=== PATIENT | female | born 1985 | race Two or more races ===

== ENCOUNTER 2016-12-18 13:45 | Emergency (ER) | payer OTHER ==
[2016-12-18 13:51] VITALS: TEMP 98; BMI 24.4
[2016-12-18] MEDS ORDERED: DIPHTH,PERTUSS(ACELL),TET 0.5 ML DISP.SYRIN IM ONE (14:05)
--- NOTE | 2016-12-18 14:38 | PDOC ---
History of Present Illness - General Chief Complaint: Weakness Stated Complaint: CUT IN THE L HAND Time Seen by Provider: 12/18/16 13:56 History Source: Patient Exam Limitations: No Limitations - History of Present Illness Initial Comments: 12/18/16 14:34 31-year-old female status post laceration to the left hand. Patient states was opening up a can when it cut her on her palm causing bleeding and a laceration. Patient states is not up-to-date on tetanus but denies any medical history. Patient in triage felt diaphoretic and had a low BP so was sent here versus fast track. Timing/Duration: 1-3 hours Severity: mild Associated Symptoms: reports: denies symptoms Past History - Travel Traveled outside of the country in the last 30 days: No Close contact w/someone who was outside of country & ill: No - Past Medical History Allergies/Adverse Reactions: Allergies Allergy/AdvReac Type Severity Reaction Status Date / Time No Known Allergies Allergy Verified 12/18/16 13:52 Anemia: Yes Asthma: Yes - Surgical History GI Surgery: Yes (gastric bypass) - Psycho/Social/Smoking Cessation Hx Suicidal Ideation: No Smoking History: Never smoked Information on smoking cessation initiated: No Hx Alcohol Use: No Drug/Substance Use Hx: No Patient Lives Alone: No Lives with/in: spouse/SO Review of Systems - Review of Systems Able to Perform ROS?: Yes Constitutional: Yes: Diaphoresis HEENTM: No: Symptoms Reported Integumentary: Yes: See HPI Neurological: No: Dizziness *Physical Exam - Vital Signs Last Vital Signs Temp Pulse Resp BP Pulse Ox 98 F 62 18 82/49 100 12/18/16 13:47 12/18/16 13:47 12/18/16 13:47 12/18/16 13:47 12/18/16 13:47 - Physical Exam General Appearance: Yes: Nourished, Appropriately Dressed. No: Apparent Distress HEENT: negative: Pale Conjunctivae Respiratory/Chest: positive: Lungs Clear, Normal Breath Sounds. negative: Respiratory Distress, Accessory Muscle Use Cardiovascular: positive: Regular Rhythm, Regular Rate. negative: Murmur Integumentary: positive: Other (Patient with 2 cm laceration to the palmar aspect of left hand. Surrounding skin intact) Procedures - Laceration/Wound Repair Left Hand Wound Length: to 2.5 cm Wound Explored: clean Wound's Depth, Shape: superficial, linear Irrigated w/ Saline: Yes Betadine Prep: Yes Anesthesia: 1% Lidocaine Amount of Anesthetic (ccs): 1 Wound Repaired With: Sutures Suture Size/Type: 5:0 Number of Sutures: 5 Sterile Dressing Applied: Yes ED Treatment Course - Medications Given in the ED: ED Medications Discontinued Medications Generic Name Dose Route Start Last Admin Trade Name Freq PRN Reason Stop Dose Admin Diphtheria/Tetanus/Acell Pertussis 0.5 ml 12/18/16 14:05 12/18/16 14:25 Boostrix - IM 12/18/16 14:06 0.5 ml .ONCE ONE Administration Medical Decision Making - Medical Decision Making 12/18/16 14:36 Patient laceration to left hand. Patient had 5 stitches sutures placed without difficulty. Patient also received tetanus. Patient discharged home to follow-up in 10 days for suture removal. *DC/Admit/Observation/Transfer Diagnosis at time of Disposition: Laceration of hand Qualifiers: Encounter type: initial encounter Foreign body presence: without foreign body Laterality: left Qualified Code(s): S61.412A - Laceration without foreign body of left hand, initial encounter - Discharge Dispostion Disposition: HOME Condition at time of disposition: Improved - Patient Instructions Printed Discharge Instructions: DI for Laceration Repair -- Simple Additional Instructions: Change dressing on Thursday and then daily thereafter applying bacitracin to the area. Rreturn here 10 days for suture removal. If area becomes red swollen or is draining fluid please return sooner if this may be a sign of infection.
[2016-12-18 14:58] VITALS: BP 108/60; PULSE 60
== END 2016-12-18 14:50 | disposition home or self-care (01) ==
LOC: JER 13:45
PROC: 0HQGXZZ Repair Left Hand Skin, External Approach (ICD-10-PCS; principal; 2016-12-18)
DX: S61.412A Laceration without foreign body of left hand, initial encounter (principal); W26.8XXA Contact with other sharp object(s), not elsewhere classified, initial encounter; Y93.89 Activity, other specified; Y92.9 Unspecified place or not applicable; Y99.9 Unspecified external cause status; Z98.84 Bariatric surgery status
CPT/HCPCS: 90715; 99282-25

== ENCOUNTER 2016-12-28 14:14 | Emergency (ER) | payer OTHER ==
[2016-12-28 14:17] VITALS: BP 109/69; PULSE 67; TEMP 98.2; BMI 24.4
--- NOTE | 2016-12-28 14:45 | PDOC ---
Suture Removal/Wound Check HPI - History of Present Illness Chief Complaint: Suture/Staple Removal(Here) Stated Complaint: REVISIT/ REMOVE STICHES Time Seen by Provider: 12/28/16 14:23 History Source: Yes: Patient Exam Limitations: Yes: No Limitations Treated at: [facility] Date of Last ED visit: 12/18/16 - Previous ED Treatment Type of procedure performed on last visit: Yes: Laceration Repair Tetanus Immunization: Yes: Up to Date Past History - Past Medical History Allergies/Adverse Reactions: Allergies No Known Allergies Allergy (Verified 12/28/16 14:17) General: Yes: no pertinent history Surgical History: Yes: No Surgical History - Social History Smoking Status: Never smoked Suture Removal/Wound Check PE - Physical Exam Comments: 12/28/16 14:39 Wound is moist with moist edges, 5 sutures removed. Dermabond placed over wound for stability. In high tension area and edges were moist. Current Severity Level: None Maximum Severity Level: None Pain Localization: None *Review of Systems - Review of Systems Constitutional: No: Symptoms Reported Integumentary: No: Symptoms Reported, Bruising, Erythema All Other Systems: Reviewed and Negative Medical Decision Making - Medical Decision Making 12/28/16 14:43 A/P : Suture removal , dermabond, chance of area opening if area gets wet or high tension, she verbalized understanding. *DC/Admit/Observation/Transfer Diagnosis at time of Disposition: Encounter for removal of sutures - Discharge Dispostion Disposition: HOME Condition at time of disposition: Good Admit: No - Patient Instructions Printed Discharge Instructions: DI for Suture Removal Additional Instructions: Please keep area dry for at least 3 days Please note if the area gets wet, or hypotension may open Follow-up as needed
== END 2016-12-28 15:11 | disposition home or self-care (01) ==
LOC: JERFT 14:14
DX: Z48.02 Encounter for removal of sutures (principal)
CPT/HCPCS: 99281-25

== ENCOUNTER 2017-04-13 09:34 | Emergency (ER) | payer OTHER ==
[2017-04-13 09:38] VITALS: BP 109/65; PULSE 65; TEMP 98.2; BMI 25.0
--- NOTE | 2017-04-13 11:09 | PDOC ---
History of Present Illness - General Chief Complaint: Back Pain Stated Complaint: LOWER BACK PAIN Time Seen by Provider: 04/13/17 11:07 Past History - Past Medical History Allergies/Adverse Reactions: Allergies Allergy/AdvReac Type Severity Reaction Status Date / Time No Known Allergies Allergy Verified 04/13/17 09:36 Home Medications: Ambulatory Orders Cyclobenzaprine HCl 5 mg PO HS #10 tablet 04/13/17 Naproxen Sodium 275 mg PO BID #14 tablet 04/13/17 Anemia: Yes Asthma: Yes Other medical history: back problems - Surgical History GI Surgery: Yes (gastric bypass) - Suicide/Smoking/Psychosocial Hx Smoking History: Never smoked Have you smoked in the past 12 months: No Information on smoking cessation initiated: No Hx Alcohol Use: No Drug/Substance Use Hx: No Substance Use Type: None *Physical Exam - Vital Signs Last Vital Signs Temp Pulse Resp BP Pulse Ox 98.2 F 65 18 109/65 100 04/13/17 09:37 04/13/17 09:37 04/13/17 09:37 04/13/17 09:37 04/13/17 09:37 *DC/Admit/Observation/Transfer Diagnosis at time of Disposition: Low back pain Qualifiers: Chronicity: acute Back pain laterality: right Sciatica presence: with sciatica Sciatica laterality: sciatica of right side Qualified Code(s): M54.41 - Lumbago with sciatica, right side - Discharge Dispostion Disposition: HOME Condition at time of disposition: Good Admit: No - Referrals Referrals: Mg Lozoya MD [Primary Care Provider] - - Patient Instructions Printed Discharge Instructions: DI for Low Back Pain Additional Instructions: You have low back pain. You were prescribed naproxen and flexaril. Take the flexaril before bed tonight and then again tomorrow morning when you wake up. do not drive after taking this mediation as it may make you sleepy. Start taking the naproxen tomorrow. Use a heating pad to help with your symptoms. Follow up with your doctor in one week. Return to the ED if you have worsening pain, develop fevers, chills, or have bladder or bowel incontinence or any changes in your symptoms.
[2017-04-13] MEDS ORDERED: KETOROLAC TROMETHAMINE 60 MG/2 ML VIAL ONE (11:37)
[2017-04-13] MEDS ORDERED: KETOROLAC TROMETHAMINE 60 MG/2 ML VIAL IM ONE (11:37)
[2017-04-13] MEDS ORDERED: CYCLOBENZAPRINE HCL 10 MG TABLET (FP) ONE (11:38)
[2017-04-13] MEDS ORDERED: CYCLOBENZAPRINE HCL 10 MG TABLET (FP) PO ONE (11:47)
[2017-04-14] MEDS ORDERED: CYCLOBENZAPRINE HCL 5 MG TABLET PO ONE (11:38)
== END 2017-04-13 11:52 | disposition home or self-care (01) ==
LOC: JERFT 09:34
PROC: 3E0233Z Introduction of Anti-inflammatory into Muscle, Percutaneous Approach (ICD-10-PCS; principal; 2017-04-13)
DX: M54.41 Lumbago with sciatica, right side (principal); J45.909 Unspecified asthma, uncomplicated
CPT/HCPCS: 96372; 99281-25

== ENCOUNTER 2017-09-14 14:04 | Emergency (ER) | payer OTHER ==
--- NOTE | 2017-09-14 15:19 | PDOC ---
Rapid Medical Evaluation Time Seen by Provider: 09/14/17 15:16 Medical Evaluation: Allergies Allergy/AdvReac Type Severity Reaction Status Date / Time No Known Allergies Allergy Verified 04/13/17 09:36 09/14/17 15:16 I have performed a brief in-person evaluation of this patient. The patient presents with a chief complaint of: fever since thursday, post nasal drip, headache, body hurts, throat pain w/ swallowing Pertinent physical exam findings: exudate b/l tonsils I have ordered the following: strep The patient will proceed to the ED for further evaluation. Discharge Disposition - Diagnosis Sore throat - Referrals - Patient Instructions - Post Discharge Activity
[2017-09-14 15:21] VITALS: BP 109/63; PULSE 87; TEMP 98.6; BMI 25.0
[2017-09-14] MEDS ORDERED: IBUPROFEN 600 MG TABLET (FP) PO ONE (16:00)
[2017-09-14] MEDS ORDERED: PENICILLIN G BENZATHINE 1,200,000 UNIT/2 ML PFS IM ONE (16:08)
--- NOTE | 2017-09-14 16:09 | PDOC ---
History of Present Illness - General Chief Complaint: Cold Symptoms Stated Complaint: BODYACHES, SORE THROAT Time Seen by Provider: 09/14/17 15:16 History Source: Patient Exam Limitations: No Limitations - History of Present Illness Initial Comments: 09/14/17 16:01 Onset of fever, chills, body aches with ear congestion, runny nose, and sore throat pain with moist nonproductive cough. All symptoms started 3-1/2 days ago. Has used [id number] medications with minimal resolved. Timing/Duration: reports: just prior to arrival Severity: reports: mild, moderate Associated Symptoms: reports: chest pain/soreness, cough, fever/chills, nasal congestion, sore throat Past History - Travel Traveled outside of the country in the last 30 days: No Close contact w/someone who was outside of country & ill: No - Past Medical History Allergies/Adverse Reactions: Allergies Allergy/AdvReac Type Severity Reaction Status Date / Time No Known Allergies Allergy Verified 04/13/17 09:36 Anemia: Yes Asthma: Yes COPD: No Other medical history: scoliosis/herniated discs - Surgical History GI Surgery: Yes (gastric bypass) - Suicide/Smoking/Psychosocial Hx Smoking History: Never smoked Have you smoked in the past 12 months: No Information on smoking cessation initiated: No Hx Alcohol Use: No Drug/Substance Use Hx: No Substance Use Type: None Review of Systems - Review of Systems Able to Perform ROS?: Yes Is the patient limited Romansh proficient: Yes Constitutional: Yes: Symptoms Reported, See HPI, Fever, Malaise HEENTM: Yes: Symptoms Reported, See HPI, Throat Pain, Difficulty Swallowing Respiratory: Yes: See HPI, Cough (nonproductive) Musculoskeletal: Yes: Symptoms Reported Integumentary: Yes: Symptoms Reported, See HPI, Pallor Neurological: Yes: Symptoms reported, See HPI, Headache All Other Systems: Reviewed and Negative *Physical Exam - Vital Signs Last Vital Signs Temp Pulse Resp BP Pulse Ox 98.6 F 87 109 H 109/63 97 09/14/17 15:18 09/14/17 15:18 09/14/17 15:18 09/14/17 15:18 09/14/17 15:18 - Physical Exam Comments: 09/14/17 16:02 GENERAL: [The child is awake, alert, and appropriately interactive.] EYES: [The pupils are equal, round, and reactive to light, with clear, conjunctiva.but glassy] NOSE: [The nose with clear drainage EARS: [The ear canals and tympanic membranes are congested but landmarks easily visualed ] THROAT: [The oropharynx is clear with erythema, with yellowish leyva exudate. The mucous membranes are moist.] NECK: [The neck is supple with mildly tender adenopathy, no menigemous] CHEST: [The lungs are coarse but clear without crackles, or wheezes.] HEART: [Heart is regular rhythm, with normal S1 and S2, no murmurs.] ABDOMEN: [The abdomen is soft and nontender with normal bowel sounds. There is no organomegaly and no mass. There is no guarding or rebound.] EXTREMITIES: [Extremities are normal.] NEURO: [Behavior is normal for age.cranky but easily,m Tone is normal.] SKIN: [Skin is unremarkable without rash or swelling. There is no bruising, and there are no other signs of injury.] General Appearance: Yes: Nourished, Appropriately Dressed, Apparent Distress, Mild Distress, Moderate Distress Progress Note - Progress Note Progress Note: Strep test positive, we'll treat with Bicillin 1.2 million units IM with observation for 30 minutes no reaction. Also probable influenza however outside window for Tamiflu treatment. We'll continue conservative measures for that resolution. *DC/Admit/Observation/Transfer Diagnosis at time of Disposition: Influenzal acute upper respiratory infection, Strep pharyngitis - Discharge Dispostion Disposition: HOME Condition at time of disposition: Stable Admit: No - Referrals - Patient Instructions Printed Discharge Instructions: DI for Strep Throat, DI for Viral Upper Respiratory Infection-Child Additional Instructions: Rest, drink lots of fluids: Teas, water, soups Eat cold things: Ice cream, ice pops, ice chips Saltwater gargles Old-fashioned treatments help! Avoid contact with others until fevers and cough resolved as this is very contagious Lots of handwashing and good hygiene Steamy showers/seem to face break up mucus Avoid contact with others until fevers and pain resolved Lots of handwashing and good hygiene, this is contagious You have been treated with Bicillin LA 1.2 million units injection which is a one-time treatment for strep pharyngitis. You will not need to take any further antibiotics. Tylenol or Motrin for fever and pain Followup with private physician in one to 2 days as needed or if worsening Return to emergency department for worsened symptoms, fevers, dehydration Influenza takes between 5 and 7 days for resolution To not participate in any activity, work, or school until fevers and cough are gone for at least one day - Post Discharge Activity Forms/Work/School Notes: Back to Work
== END 2017-09-14 16:38 | disposition home or self-care (01) ==
LOC: JERFT 14:04
DX: J02.0 Streptococcal pharyngitis (principal); B95.0 Streptococcus, group A, as the cause of diseases classified elsewhere; J11.1 Influenza due to unidentified influenza virus with other respiratory manifestations
CPT/HCPCS: 87070; 87430; 96372; 99281-25

== ENCOUNTER 2018-06-05 23:47 | Emergency (ER) | payer OTHER ==
--- NOTE | 2018-06-06 00:07 | PDOC ---
Attending Attestation - HPI HPI: 06/06/18 01:09 The patient is a 33 year old female, with a significant PMH of gastric bypass, who presents to the emergency department with 1 day of periumbilical pain, nausea with vomiting (non bloody, non bilious) and diarrhea (non bloody). The patient states her symptoms feel similar to her previous episodes of gastritis. The patient denies chest pain, shortness of breath, headache and dizziness. Denies fever, chills and constipation. Denies dysuria, frequency, urgency and hematuria. Allergies: NKA Documentation prepared by Bao Gutierrez, acting as medical intern for Theodora Luna MD - Physicial Exam PE: 06/06/18 01:10 GENERAL: Awake, alert, and fully oriented, in no acute distress HEAD: No signs of trauma EYES: PERRLA, EOMI, sclera anicteric, conjunctiva clear ENT: Auricles normal inspection, hearing grossly normal, nares patent, oropharynx clear without exudates. Moist mucosa NECK: Normal ROM, supple, no lymphadenopathy, JVD, or masses LUNGS: Breath sounds equal, clear to auscultation bilaterally. No wheezes, and no crackles HEART: Regular rate and rhythm, normal S1 and S2, no murmurs, rubs or gallops ABDOMEN: (+) Periumbilical tenderness. No rebound or guarding. (+) Kemp sign positive. Soft, normoactive bowel sounds. No masses. EXTREMITIES: Normal range of motion, no edema. No clubbing or cyanosis. No cords, erythema, or tenderness NEUROLOGICAL: Cranial nerves II through XII grossly intact. Normal speech, normal gait SKIN: Warm, Dry, normal turgor, no rashes or lesions noted. <Bao Gutierrez - Last Filed: 06/06/18 01:09> - Resident Resident Name: Issa Sawyer - ED Attending Attestation I have performed the following: I have examined & evaluated the patient, The case was reviewed & discussed with the resident, I agree w/resident's findings & plan - HPI HPI: 06/06/18 00:50 Pt comes with abd pain. - Physicial Exam PE: 06/06/18 00:51 Vitals are stable. - Medical Decision Making 06/06/18 01:55 Pt has epigastric pain on exam. SHe has no RUQ pain. She has no fever and no chills and she has no RUQ pain. Bediside sono shows no GB stones. Pt had diarrhea all day today and tonight she started vomiting. This is a stomach virus. She has no hx of food poisoning or eating anything suspicios. All labs are normal UA normal. 06/06/18 03:18 Pt feels great after hydration and treatment in the ER as well as after reassurance with normal labs and normal UA. <Theodora Luna - Last Filed: 06/06/18 03:18>
[2018-06-06 00:16] VITALS: BP 102/72; PULSE 72; TEMP 97.6; BMI 25.0
[2018-06-06] MEDS ORDERED: ACETAMINOPHEN 1000 MG/100 ML VIAL (NON FORMULARY) IVPB ONE (00:27)
[2018-06-06] MEDS ORDERED: SODIUM CHLORIDE 1,000 ML IV STA (00:27)
[2018-06-06] MEDS ORDERED: ACETAMINOPHEN INJECTION 100 ML IVPB ONE (00:46)
[2018-06-06 01:09] LABS: BASO % 0.7 % (0-2.0); EOS % 2.8 % (0-4.5); HEMATOCRIT 43.3 % (32.4-45.2); HEMOGLOBIN 14.8 GM/dL (10.7-15.3); LYMPH % 26.3 % (8-40); MCHC 34.1 g/dl (32.0-36.0); MEAN CELL VOLUME 82.1 fl (80-96); MEAN PLT VOLUME 10.2 fl (7.5-11.1); MONO % 7.7 % (3.8-10.2); NEUT % 62.5 % (42.8-82.8); PLATELET COUNT 164 K/MM3 (134-434); RBC 5.28 M/mm3 (3.60-5.2); RDW 24.6 % (11.6-15.6); WHITE BLOOD COUNT 6.3 K/mm3 (4.0-10.0)
[2018-06-06 01:16] LABS: URINE APPEARANCE CLEAR; URINE BILIRUBIN NEGATIVE (<2.0 mg/dL); URINE COLOR YELLOW; URINE GLUCOSE (UA) NEGATIVE (NEGATIVE); URINE KETONE NEGATIVE (NEGATIVE); URINE LEUK ESTERASE NEGATIVE (NEGATIVE); URINE NITRITE NEGATIVE (NEGATIVE); URINE PROTEIN NEGATIVE (NEGATIVE)
[2018-06-06] MEDS ORDERED: FAMOTIDINE 20 MG/50 ML IVPB 20 MG/50 ML MG IVPB ONE ×2 (01:22→01:39)
[2018-06-06] MEDS ORDERED: ONDANSETRON 4 MG/2 ML VIAL IVPUSH ONE (01:22)
[2018-06-06 01:23] LABS: HCG,QUALITATIVE URINE Negative
[2018-06-06 01:33] LABS: ALBUMIN 4.2 g/dl (3.4-5.0); ALK PHOS 122 U/L (45-117); ANION GAP 5 MMOL/L (8-16); BILIRUBIN,TOTAL 0.4 mg/dL (0.2-1); BLOOD UREA NITROGEN 12 mg/dL (7-18); CALCIUM 8.5 mg/dL (8.5-10.1); CHLORIDE 107 mmol/L (98-107); CO2 27 mmol/L (21-32); CREATININE 0.6 mg/dL (0.55-1.3); GLUCOSE,RANDOM 67 mg/dL (74-106); SGOT/AST 22 U/L (15-37); SGPT/ALT 43 U/L (13-61); SODIUM 139 mmol/L (136-145); TOT PROT 7.7 g/dl (6.4-8.2)
[2018-06-06] MEDS ORDERED: ONDANSETRON 4 MG/2 ML VIAL ONE (01:38)
--- NOTE | 2018-06-06 01:49 | PDOC ---
History of Present Illness - General Chief Complaint: Pain, Acute Stated Complaint: ABDOMINAL PAIN Time Seen by Provider: 06/06/18 00:00 History Source: Patient - History of Present Illness Initial Comments: 06/06/18 01:49 33YO F with PMH of Asthma, Anemia, H/O Gastric Bypass (8 yrs ago) and gastritis presents to the ED with epigastric/paraumbilical abdominal pain, feels like burning, since around 4pm today. Pain associated with nausea, vomiting and diarrhea. Decreased appetite. Denies fever, chills. No dysuria. 06/06/18 02:52 Past History - Past Medical History Allergies/Adverse Reactions: Allergies Allergy/AdvReac Type Severity Reaction Status Date / Time No Known Allergies Allergy Verified 06/06/18 00:14 Home Medications: Ambulatory Orders Famotidine [Pepcid -] 20 mg PO BID #60 tablet 06/06/18 Anemia: Yes Asthma: Yes COPD: No - Surgical History GI Surgery: Yes (gastric bypass) - Suicide/Smoking/Psychosocial Hx Smoking History: Never smoked Have you smoked in the past 12 months: No Information on smoking cessation initiated: No Hx Alcohol Use: No Drug/Substance Use Hx: No Substance Use Type: None Review of Systems - Review of Systems Able to Perform ROS?: Yes Is the patient limited Irish proficient: No Constitutional: No: Symptoms Reported HEENTM: No: Symptoms Reported Respiratory: No: Symptoms reported Cardiac (ROS): No: Symptoms Reported ABD/GI: Yes: See HPI : No: Symptoms Reported Musculoskeletal: No: Symptoms Reported Integumentary: No: Symptoms Reported Neurological: No: Symptoms reported All Other Systems: Reviewed and Negative *Physical Exam - Vital Signs Last Vital Signs Temp Pulse Resp BP Pulse Ox 97.6 F 72 20 102/72 100 06/06/18 00:15 06/06/18 00:15 06/06/18 00:15 06/06/18 00:15 06/06/18 00:15 - Physical Exam General Appearance: Yes: Nourished, Appropriately Dressed. No: Apparent Distress HEENT: positive: EOMI, BARBARA, Normal ENT Inspection Respiratory/Chest: positive: Lungs Clear, Normal Breath Sounds. negative: Chest Tender, Respiratory Distress Cardiovascular: positive: Regular Rhythm, Regular Rate, S1, S2 Gastrointestinal/Abdominal: positive: Normal Bowel Sounds, Tender (epigastric), Flat, Soft Musculoskeletal: positive: Normal Inspection. negative: CVA Tenderness Extremity: positive: Normal Capillary Refill, Normal Inspection, Normal Range of Motion Integumentary: positive: Normal Color, Dry, Warm Neurologic: positive: Fully Oriented, Alert, Normal Mood/Affect, Normal Response , Motor Strength 11/28 ED Treatment Course - LABORATORY CBC & Chemistry Diagram: 06/06/18 00:53 06/06/18 00:53 - ADDITIONAL ORDERS Additional order review: Laboratory Results 06/06/18 06/06/18 06/06/18 00:53 00:53 00:45 WBC 6.3 RBC 5.28 H Hgb 14.8 Hct 43.3 D MCV 82.1 MCH 28.0 D MCHC 34.1 RDW 24.6 H Plt Count 164 MPV 10.2 D Absolute Neuts (auto) 3.9 Neutrophils % 62.5 Lymphocytes % 26.3 Monocytes % 7.7 Eosinophils % 2.8 Basophils % 0.7 Nucleated RBC % 0 Sodium 139 Potassium 4.0 Chloride 107 Carbon Dioxide 27 Anion Gap 5 L BUN 12 Creatinine 0.6 Creat Clearance w eGFR > 60 Random Glucose 67 L Calcium 8.5 Total Bilirubin 0.4 AST 22 ALT 43 Alkaline Phosphatase 122 H Total Protein 7.7 Albumin 4.2 Urine Color Yellow Urine Appearance Clear Urine pH 5.0 Ur Specific [place] 1.021 Urine Protein Negative Urine Glucose (UA) Negative Urine Ketones Negative Urine Blood Negative Urine Nitrite Negative Urine Bilirubin Negative Urine Urobilinogen 2.0 H Ur Leukocyte Esterase Negative Urine HCG, Qual Negative 06/06/18 00:53 RBC 5.28 H MCV 82.1 MCHC 34.1 RDW 24.6 H MPV 10.2 D Neutrophils % 62.5 Lymphocytes % 26.3 Monocytes % 7.7 Eosinophils % 2.8 Basophils % 0.7 - Medications Given in the ED: ED Medications Discontinued Medications Generic Name Dose Route Start Last Admin Trade Name Freq PRN Reason Stop Dose Admin Acetaminophen 1,000 mg 06/06/18 00:27 06/06/18 00:37 Ofirmev Injection - IVPB 06/06/18 00:28 1,000 mg ONCE ONE Administration Sodium Chloride 1,000 mls @ 1,000 mls/hr 06/06/18 00:27 06/06/18 00:37 Normal Saline - IV 06/06/18 01:26 1,000 mls/hr ASDIR STA Administration Medical Decision Making - Medical Decision Making 06/06/18 02:46 gastritis vs gallstones vs gastroenteritis. Due to the patient history of gastritis with similar symptoms this is on top of the differential. Bedside US negative for stones, -sonographic mcmurphy, normal anterior wall of the gallbladder, normal CBD width. Giving patient fluids, tylenol and pepcid. Feels much better after pepcid. Will discharge. 06/06/18 02:53 *DC/Admit/Observation/Transfer Diagnosis at time of Disposition: Gastritis - Discharge Dispostion Disposition: HOME Condition at time of disposition: Improved Decision to Admit order: No - Referrals Referrals: Garrick Bryant MD [Staff Physician] - - Patient Instructions Printed Discharge Instructions: Gastritis Additional Instructions: Follow up with your primary care provider and referred coordinator of rehabilitation services within the next 3-4 days. Come back to the ER for any new, worsening or concerning symptoms. Print Language: ANGUILLAN - Post Discharge Activity
[2018-06-06] MEDS ORDERED: MAG HYDROX/AL HYDROX/SIMETH 30 ML UNIT-DOSE CUP PO ONE (01:53)
[2018-06-06 01:54] LABS: ANISOCYTOSIS 2+
[2018-06-06 01:55] LABS: PLATELET ESTIMATE ADEQUATE
== END 2018-06-06 03:14 | disposition home or self-care (01) ==
LOC: JER 23:47
PROC: 3E033GC Introduction of Other Therapeutic Substance into Peripheral Vein, Percutaneous Approach (ICD-10-PCS; principal; 2018-06-05)
PROC: 3E033GC Introduction of Other Therapeutic Substance into Peripheral Vein, Percutaneous Approach (ICD-10-PCS; 2018-06-05)
PROC: 3E033NZ Introduction of Analgesics, Hypnotics, Sedatives into Peripheral Vein, Percutaneous Approach (ICD-10-PCS; 2018-06-05)
DX: K29.70 Gastritis, unspecified, without bleeding (principal); D64.9 Anemia, unspecified; J45.909 Unspecified asthma, uncomplicated; Z98.84 Bariatric surgery status
CPT/HCPCS: 36415; 80053; 81003; 84703; 85025; 96365; 96375; 99281-25; J0131; J7030

== ENCOUNTER 2019-04-10 03:02 | Emergency (ER) | payer OTHER ==
[2019-04-10 03:29] VITALS: TEMP 97; BMI 33.8
--- NOTE | 2019-04-10 03:54 | PDOC ---
Attending Attestation - Resident Resident Name: Staci Sharma - ED Attending Attestation I have performed the following: I have examined & evaluated the patient, The case was reviewed & discussed with the resident, I agree w/resident's findings & plan - HPI HPI: 04/11/19 04:05 34 y/o F with hx of chronic back pain, vertigo, gastritis, gastric bypass in 2009 presenting with abdominal pain. A few hours ago when she felt dizzy like the room was spinning followed by nausea and 10 episodes of NBNB emesis. Pt has mixed drinks and alcohol when she went out with her girlfriends. After the emesis, she started having epigastric and LUQ abdominal pain. She describes the pain as crampy and burning similar to her gastritis pain. She also reports constant belching and feeling distended. She attmepted PPI with no relief. She reports some SOB with deep inspiration due to the abdominal distention. She denies fever, chills, chest pain, palpitations, dysuira, diarrhea. - Physicial Exam PE: 04/11/19 04:08 Agree with resident exam - Medical Decision Making 04/11/19 04:08 Hydrated and feeling better; labs normal and she is stable for discharge
--- NOTE | 2019-04-10 03:55 | PDOC ---
History of Present Illness - General Chief Complaint: Pain, Acute Stated Complaint: STOMACH PAIN Time Seen by Provider: 04/10/19 03:53 - History of Present Illness Initial Comments: 04/10/19 04:46 HPI: 34 y/o F with hx of chronic back pain, vertigo, gastritis, gastric bypass in 2009 presenting with abdominal pain. Her symptoms began a few hours ago when she felt dizzy like the room was spinning followed by nausea and 10episodes of NBNB emesis. After the emesis, she started having epigastric and LUQ abdominal pain. She describes the pain as crampy and burning similar to her gastritis pain. She also reports constant belching and feeling distended. She attmepted PPI with no relief. She reports some SOB with deep inspiration due to the abdominal distention. She denies fever, chills, chest pain, palpitations, dysuira, diarrhea. PMHx: as noted above ROS: as noted SHx: Denies tobacco use; no alcohol use; no rec drugs Allergies: NKDA ROS: GENERAL/CONSTITUTIONAL: No fever or chills. No weakness. HEAD, EYES, EARS, NOSE AND THROAT: No change in vision. No ear pain or discharge. No sore throat. CARDIOVASCULAR: No chest pain RESPIRATORY: No cough, wheezing, or hemoptysis. GASTROINTESTINAL: +nausea, vomiting GENITOURINARY: No dysuria, frequency, or change in urination. MUSCULOSKELETAL: No joint or muscle swelling or pain. No neck or back pain. SKIN: No rash NEUROLOGIC: No headache, loss of consciousness, or change in strength/sensation. ENDOCRINE: No increased thirst. No abnormal weight change HEMATOLOGIC/LYMPHATIC: No anemia, easy bleeding, or history of blood clots. ALLERGIC/IMMUNOLOGIC: No hives or skin allergy. PE: GENERAL: Awake, alert, and fully oriented, no acute distress HEAD: No signs of trauma, normocephalic, atraumatic EYES: EOMI, sclera anicteric, conjunctiva clear ENT: Auricles normal inspection, hearing grossly normal, nares patent, oropharynx clear without exudates. Moist mucosa NECK: Normal ROM, no lymphadenopathy LUNGS: No increased work of breathing, symmetrical chest rise, clear to auscultation bilaterally, no wheezes, crackles or rhonchi HEART: Regular rate and rhythm, normal S1 and S2, no murmurs, peripheral pulses 2+ and equal bilaterally. ABDOMEN: Soft, mildly distended with tympany in epigastric and LUQ, mild generalized tenderness, negative Jefferson, negatitve mcburneys, normoactive bowel sounds. No guarding, no rebound. No masses EXTREMITIES: Normal inspection, Normal range of motion, no edema. No clubbing or cyanosis. NEUROLOGICAL: Cranial nerves II through XII grossly intact. Normal speech, normal gait, no focal sensorimotor deficits SKIN: Warm, Dry, normal turgor, no rashes or lesions noted Past History - Past Medical History Allergies/Adverse Reactions: Allergies Allergy/AdvReac Type Severity Reaction Status Date / Time No Known Allergies Allergy Verified 04/10/19 03:25 Home Medications: Ambulatory Orders Famotidine [Pepcid -] 20 mg PO BID #60 tablet 06/06/18 Anemia: Yes Asthma: Yes COPD: No - Surgical History GI Surgery: Yes (gastric bypass) - Suicide/Smoking/Psychosocial Hx Smoking History: Never smoked Have you smoked in the past 12 months: No Information on smoking cessation initiated: No Hx Alcohol Use: No Drug/Substance Use Hx: No Substance Use Type: None *Physical Exam - Vital Signs Last Vital Signs Temp Pulse Resp BP Pulse Ox 97 F L 82 18 110/70 99 04/10/19 03:10 04/10/19 03:10 04/10/19 03:10 04/10/19 03:10 04/10/19 03:10 ED Treatment Course - LABORATORY CBC & Chemistry Diagram: 04/10/19 04:04 04/10/19 04:04 Medical Decision Making - Medical Decision Making 04/10/19 04:52 34 y/o F with hx of chronic back pain, vertigo, gastritis, gastric bypass in 2009 presenting with abdominal pain associated with emesis, nausea, and dizziness. Vitals wnl. PE notable for mild abdominal distention without rigidity and mild generalzied tenderness. DDx includes gallbladder vs GE vs gastritis vs GERD -cbc, cmp, lipase, upg, ua -ivf 04/10/19 06:18 glucose 44 will give D10 glucose patient symptoms signifcantly improved discussed results and return pcxns; patient understands information and is comfortable with DC home with followup with PCP and surgery for repeated gastritis presentaitinos as well as GI referral *DC/Admit/Observation/Transfer Diagnosis at time of Disposition: Abdominal pain Qualifiers: Abdominal location: unspecified location Qualified Code(s): R10.9 - Unspecified abdominal pain - Discharge Dispostion Disposition: HOME Condition at time of disposition: Improved Decision to Admit order: No - Referrals Referrals: Mg Lozoya MD [Primary Care Provider] - Mg Fong MD [Staff Physician] - - Patient Instructions Printed Discharge Instructions: DI for Abdominal Pain-Adult Additional Instructions: Additional Instructions: Please return to the emergency department with any new or worsening symptoms or concerns including worsening abdominal pain, severe vomiting, fainting, inability to tolerate foods. Please follow up with your primary care physician within 72 hours and with your surgeon for repeated presentations of abdominal pain. Please see GI referral for further management and evaluation. Continue to take medications as prescribed Instrucciones adicionales: Regrese al departamento de emergencias con cualquier sntoma o inquietud nueva o que empeore, incluido el empeoramiento del dolor abdominal, vmitos intensos, desmayos, incapacidad para tolerar los alimentos. Alida un seguimiento con noel mdico de atencin primaria dentro de las 72 horas y con noel cirujano para las presentaciones repetidas de dolor abdominal. Consulte la referencia de GI para marcin mayor gestin y evaluacin. Contine tomando los medicamentos recetados. - Post Discharge Activity
[2019-04-10] MEDS ORDERED: SODIUM CHLORIDE 0.9% 500 ML INFUS.BAG IV ONE (04:29)
[2019-04-10 04:32] LABS: BASO % 0.5 % (0-2.0); EOS % 1.4 % (0-4.5); HEMATOCRIT 35.9 % (32.4-45.2); HEMOGLOBIN 11.3 GM/dL (10.7-15.3); LYMPH % 13.8 % (8-40); MCH 24.8 pg (25.7-33.7); MCHC 31.5 g/dl (32.0-36.0); MEAN PLT VOLUME 10.5 fl (7.5-11.1); MONO % 9.9 % (3.8-10.2); NEUT % 74.4 % (42.8-82.8); PLATELET COUNT 200 K/MM3 (134-434); RBC 4.55 M/mm3 (3.60-5.2); RDW 14.5 % (11.6-15.6); WHITE BLOOD COUNT 8.1 K/mm3 (4.0-10.0)
[2019-04-10 04:58] LABS: ALBUMIN 3.8 g/dl (3.4-5.0); BILIRUBIN,TOTAL 0.3 mg/dL (0.2-1); BLOOD UREA NITROGEN 12.9 mg/dL (7-18); CALCIUM 8.1 mg/dL (8.5-10.1); CREATININE 0.6 mg/dL (0.55-1.3); POTASSIUM 3.6 mmol/L (3.5-5.1); TOT PROT 6.8 g/dl (6.4-8.2)
[2019-04-10 05:48] VITALS: BP 100/57; PULSE 64
[2019-04-10] MEDS ORDERED: DEXTROSE 50%-WATER - 25 GM/50 ML VIAL IVPUSH ONE (05:57)
[2019-04-10 06:01] LABS: EPI CELLS 1.2 /HPF (0-5/HPF); HYALINE CASTS 1 /lpf (0-8); PH,URINE 6.5 (5.0-8.0); URINE APPEARANCE CLEAR; URINE BACTERIA 53.3 /hpf (NEGATIVE); URINE BILIRUBIN NEGATIVE (NEGATIVE); URINE COLOR YELLOW; URINE GLUCOSE (UA) NEGATIVE (NEGATIVE); URINE KETONE NEGATIVE (NEGATIVE); URINE LEUK ESTERASE NEGATIVE (NEGATIVE); URINE NITRITE NEGATIVE (NEGATIVE); URINE PROTEIN NEGATIVE (NEGATIVE); URINE RBC 1 /hpf (0-4); URINE WBC 0 /hpf (0-5)
== END 2019-04-10 06:45 | disposition home or self-care (01) ==
LOC: JER 03:02
PROC: 3E033GC Introduction of Other Therapeutic Substance into Peripheral Vein, Percutaneous Approach (ICD-10-PCS; principal; 2019-04-10)
DX: R10.9 Unspecified abdominal pain (principal); E16.2 Hypoglycemia, unspecified; Z87.09 Personal history of other diseases of the respiratory system; Z86.2 Personal history of diseases of the blood and blood-forming organs and certain disorders involving the immune mechanism; Z98.84 Bariatric surgery status
CPT/HCPCS: 36415; 80053; 81003; 83690; 84703; 85025; 96374; 99283-25

== ENCOUNTER 2019-04-11 19:56 | Emergency (ER) | payer OTHER | END 2019-04-11 22:33 | disposition left against medical advice (07) | LOC: JER 19:56 ==